=== PATIENT | male | born 1995 | race Caucasian/White ===

== ENCOUNTER → 2017-03-01 | Outpatient (CLI) | payer OTHER ==
[2017-03-01 16:25] LABS: CHLORIDE,CL 106 mmol/L (98-110); SODIUM,NA 141 mmol/L (136-146)
== END ==
LOC: MW.CHFP 15:32
PROVIDERS: ATTEND Physician Assistant
DX: R19.7 Diarrhea, unspecified (principal)
CPT/HCPCS: 36415; 80053; 83630; 85025; 87046; 87899

== ENCOUNTER → 2017-03-02 | Outpatient (CLI) | payer OTHER | LOC: MW.CHFP 11:00 | PROVIDERS: ATTEND Physician Assistant | DX: R19.7 Diarrhea, unspecified (principal) | CPT/HCPCS: 87324 ==

== ENCOUNTER 2017-03-23 17:55 | Emergency (ER) | payer OTHER ==
[2017-03-23] MEDS ORDERED: Ketorolac 60 MG/2 ML SDV IM ONE (18:28)
--- NOTE | 2017-03-23 18:35 | EDM.PDOC ---
ED HPI GENERAL MEDICAL PROBLEM - General Chief Complaint: General Stated Complaint: PT HAS CHEST PAINS Time Seen by Provider: 03/23/17 18:00 Source of Information: Reports: Patient History Limitations: Reports: No limitations - History of Present Illness INITIAL COMMENTS - FREE TEXT/NARRATIVE: Presents reporting pain under the shoulder blade on the left back which radiates under his arm to the left chest. It started earlier today after he a gone hiking. Reports it increases with laughing, coughing or deep breath. He also states that he has a sensation like "something is moving" in his scalp at the crown of his head. He states he had a headache last evening but it went away with a couple of Advil. Otherwise healthy without chronic medical problems. No shortness of breath, fever, nausea, cough or URI symptoms. Left Chest Pain Score (Numeric/FACES): 3 - Related Data Allergies Allergy/AdvReac Type Severity Reaction Status Date / Time acetaminophen [From Vicodin] Allergy Vomiting Verified 03/23/17 18:12 hydrocodone [From Vicodin] Allergy Vomiting Verified 03/23/17 18:12 Home Meds: Home Meds . [No Known Home Meds] 03/23/17 [History] Past Medical History - Past Health History Medical/Surgical History: Denies Medical/Surgical History Social & Family History - Family History Family Medical History: Noncontributory - Tobacco Use Smoking Status *Q: Never Smoker - Caffeine Use Caffeine Use: Reports: None - Recreational Drug Use Recreational Drug Use: No ED ROS GENERAL - Review of Systems Review Of Systems: ROS reveals no pertinent complaints other than HPI. ED EXAM, GENERAL - Physical Exam Exam: See Below Exam Limited By: No limitations General Appearance: alert, no apparent distress Ears: normal external exam, normal TMs Nose: normal inspection Throat/Mouth: Normal inspection Head: atraumatic, normocephalic Neck: normal inspection Respiratory/Chest: no respiratory distress, lungs clear, normal breath sounds, no accessory muscle use, chest non-tender, other (I palpated all over his spine left shoulder blade under his arm left chest and left upper abdomen while he was talking and he never even noticed) Cardiovascular: normal peripheral pulses, regular rate, rhythm, no edema, no murmur GI/Abdominal: Soft, No Distention Back Exam: normal inspection, full range of motion. No: CVA tenderness (L), CVA tenderness (R) Extremities: normal inspection, normal range of motion Neurological: alert, oriented, normal cognition, no motor/sensory deficits Psychiatric: normal affect, normal mood Skin Exam: Warm, Dry, Intact, Normal color, No rash Lymphatic: no adenopathy EKG INTERPRETATION EKG Date: 03/23/17 (1751) Rhythm: NSR Rate (beats/min): 73 [place]: normal P-wave: present QRS: normal ST-T: normal QT: normal Course - Vital Signs Last Recorded V/S: Last Vital Signs Temp 37.1 C 03/23/17 18:05 Pulse 77 03/23/17 18:05 Resp 18 03/23/17 18:05 BP 136/82 03/23/17 18:05 Pulse Ox 99 03/23/17 18:05 - Orders/Labs/Meds Orders: Active Orders 24 hr Category Date Time Status EKG 12 Lead [EKG Documentation Completion] [RC] STAT Care 03/23/17 17:57 Active Ketorolac [Toradol] Med 03/23/17 18:28 Once 60 mg IM ONETIME ONE Departure - Departure Time of Disposition: 18:35 Disposition: Home, Self-Care 01 Condition: good Clinical Impression: Muscle strain - Discharge Information Referrals: PCP,None [Primary Care Provider] - [facility] [Outside] [facility] [Outside] Forms: ED Department Discharge Additional Instructions: 1. Warm or cold packs every 20 minutes every 3-4 hours. 2. Ibuprofen 600mg every 8 hours or aleve 2 tabs every 12 hours as needed for pain. 3. Follow up in primary care - My Orders Last 24 Hours: My Active Orders 03/23/17 17:57 EKG 12 Lead [EKG Documentation Completion] [RC] STAT 03/23/17 18:28 Ketorolac [Toradol] 60 mg IM ONETIME ONE - Assessment/Plan Last 24 Hours: My Active Orders 03/23/17 17:57 EKG 12 Lead [EKG Documentation Completion] [RC] STAT 03/23/17 18:28 Ketorolac [Toradol] 60 mg IM ONETIME ONE
[2017-03-23 19:05] VITALS: BP 114/73
== END 2017-03-23 19:03 | disposition home or self-care (01) ==
LOC: MW.ED 17:55
DX: S29.012A Strain of muscle and tendon of back wall of thorax, initial encounter (principal); Y93.01 Activity, walking, marching and hiking; Z88.5 Allergy status to narcotic agent; Z88.6 Allergy status to analgesic agent
CPT/HCPCS: 93005; 96372; 99285; J1885; 99283

== ENCOUNTER 2017-11-06 21:16 | Emergency (ER) | payer OTHER ==
[2017-11-06] MEDS ORDERED: Lidocaine 1% 20 ML MDV INJECT ONE (21:38)
--- NOTE | 2017-11-06 21:38 | EDM.PDOC ---
ED HPI GENERAL MEDICAL PROBLEM - General Chief Complaint: Laceration Stated Complaint: LACERATION RT THUMB Time Seen by Provider: 11/06/17 21:36 Source of Information: Reports: Patient History Limitations: Reports: No Limitations - History of Present Illness INITIAL COMMENTS - FREE TEXT/NARRATIVE: HISTORY AND PHYSICAL: 22-year-old male presents with a laceration to the lateral right thumb History of Present Illness: []Patient was trying to cut a Ziploc tie cutting towards himself cut his thumb Review of Systems: As per history of present illness and below otherwise all systems reviewed and negative. Past medical history: As per history of present illness and as reviewed below otherwise noncontributory. Surgical history: As per history of present illness and as reviewed below otherwise noncontributory. Social history: No reported history of drug or alcohol abuse. Family history: As per history of present illness and as reviewed below otherwise noncontributory. Physical exam: Gen. he walks into the emergency department she is alert and oriented answering questions appropriately in full sentences HEENT: Atraumatic, normocehpalic, pupils reactive, negative for conjunctival pallor or scleral icterus, mucous membranes moist, throat clear, neck supple, nontender, trachea midline. Lungs: Clear to auscultation, breath sounds equal bilaterally, chest non tender. Heart: S1S2, regular, negative for clicks, rubs, or JVD. Abdomen: Soft, nondistended, nontender. Negative for masses or hepatossplenmegaly. Negative for costovertebral tenderness. Pelvis: Stable nontender. Genitourinary: Deferred. Rectal: Deferred Extremities: Atraumatic, negative for cords or calf pain. Right thumb with a 2 cm laceration Neurovascular unremarkable. Neuro: Awake, alert, oriented. Cranial nerves II through XII unremarkable. Cerebellum unremarkable. Motor and sensory unremarkable throughout. Exam nonfocal. Diagnostics: [] Therapeutics: [Lidocaine] Impression: [Laceration to right thumb with repair] Plan: [Discharged to home sutures to be removed in 7-10 days Any redness heat swelling pustular exudate return for reevaluation] Definitive disposition and diagnosis as appropriate pending reevaluation and review of above. Onset: Today, Sudden Right Hand Pain Score (Numeric/FACES): 5 - Related Data Allergies Allergy/AdvReac Type Severity Reaction Status Date / Time acetaminophen [From Vicodin] Allergy Vomiting Verified 03/23/17 18:12 hydrocodone [From Vicodin] Allergy Vomiting Verified 03/23/17 18:12 Home Meds: Home Meds . [No Known Home Meds] 03/23/17 [History] Past Medical History - Past Health History Medical/Surgical History: Denies Medical/Surgical History Social & Family History - Family History Family Medical History: Noncontributory - Tobacco Use Smoking Status *Q: Never Smoker - Caffeine Use Caffeine Use: Reports: None - Recreational Drug Use Recreational Drug Use: No ED ROS GENERAL - Review of Systems Review Of Systems: ROS reveals no pertinent complaints other than HPI. ED EXAM, SKIN/RASH Exam: See Below (See dictation) ED SKIN PROCEDURES - Laceration/Wound Repair Right Lateral Finger Lac/Wound length In cm: 2.5 Appearance: Subcutaneous, Clean Distal NVT: Neuro & Vascular Intact Anesthetic Type: Local Local Anesthesia - Lidocaine (Xylocaine): 1% Plain Local Anesthetic Volume: 3cc Skin Prep: Chlorhexidine (Hibiciens) Exploration/Debridement/Repair: Wound Explored, In a Bloodless Field, Explored to Base Closed with: Sutures Suture Size: 4-0 # of Sutures: 4 Suture Type: Nylon, Interrupted, Simple Drain Placement: No Sterile Dressing Applied: Nurse Tetanus Status Addressed: No (Last tetanus vaccine 2 years ago) Complications: No Course - Vital Signs Last Recorded V/S: Last Vital Signs Temp 36.3 C 11/06/17 21:39 Pulse 87 11/06/17 21:39 Resp 14 11/06/17 21:39 BP 125/81 11/06/17 21:39 Pulse Ox 98 11/06/17 21:39 - Orders/Labs/Meds Meds: Medications Discontinued Medications Generic Name Dose Route Start Last Admin Trade Name Freq PRN Reason Stop Dose Admin Bacitracin 1 dose 11/06/17 21:39 Bacitracin Oint 1 Gm TOP 11/06/17 21:40 ONETIME ONE Lidocaine HCl 20 ml 11/06/17 21:38 Xylocaine 1% INJECT 11/06/17 21:39 ONETIME ONE Departure - Departure Time of Disposition: 22:04 Disposition: Home, Self-Care 01 Condition: Good Clinical Impression: Laceration of thumb Qualifiers: Encounter type: initial encounter Damage to nail status: without damage Foreign body presence: without foreign body Laterality: right Qualified Code(s) : S61.011A - Laceration without foreign body of right thumb without damage to nail, initial encounter - Discharge Information Instructions: Stitches, Cuca, or Adhesive Wound Closure, [id number] Referrals: PCP,None [Primary Care Provider] - Forms: ED Department Discharge Additional Instructions: The following information is given to patients seen in the emergency department who are being discharged to home. This information is to outline your options for follow-up care. We provide all patients seen in our emergency department with a follow-up referral. The need for follow-up, as well as the timing and circumstances, are variable depending upon the specifics of your emergency department visit. If you don't have a primary care physician on staff, we will provide you with a referral. We always advise you to contact your personal physician following an emergency department visit to inform them of the circumstance of the visit and for follow-up with them and/or the need for any referrals to a consulting specialist. The emergency department will also refer you to a specialist when appropriate. This referral assures that you have the opportunity for followup care with a specialist. All of these measure are taken in an effort to provide you with optimal care, which includes your followup. Under all circumstances we always encourage you to contact your private physician who remains a resource for coordinating your care. When calling for followup care, please make the office aware that this follow-up is from your recent emergency room visit. If for any reason you are refused follow-up, please contact the [facility] emergency department at and asked to speak to the emergency department charge nurse. Follow-up in 7-10 days for suture removal Any redness heat swelling pustular exudate he will need to have be reevaluated
[2017-11-06] MEDS ORDERED: Bacitracin Oint 1 GM U/D Packet TOP ONE (21:39)
[2017-11-06 21:42] VITALS: BP 125/81
== END 2017-11-06 22:20 | disposition home or self-care (01) ==
LOC: MW.ED 21:16
DX: S61.011A Laceration without foreign body of right thumb without damage to nail, initial encounter (principal); W26.8XXA Contact with other sharp object(s), not elsewhere classified, initial encounter
CPT/HCPCS: 12001; 99282

== ENCOUNTER 2017-11-14 11:19 | Emergency (ER) | payer OTHER | END 2017-11-14 11:25 | disposition left against medical advice (07) | LOC: MW.ED 11:19 | DX: Z53.21 Procedure and treatment not carried out due to patient leaving prior to being seen by health care provider (principal) ==

== ENCOUNTER 2020-09-04 18:36 | Emergency (ER) | payer BC, OTHER ==
[2020-09-04] MEDS ORDERED: Acetaminophen 500 MG Tab PO ONE (19:06)
[2020-09-04] MEDS ORDERED: Sodium Chloride 0.9% 1,000 ML IV ONE (19:14)
--- NOTE | 2020-09-04 19:21 | EDM.PDOC ---
ED HPI GENERAL MEDICAL PROBLEM - General Chief Complaint: Respiratory Problem Stated Complaint: HIGH FEVER/WEAKNESS/COVID EXPOSURE Time Seen by Provider: 09/04/20 18:56 - History of Present Illness INITIAL COMMENTS - FREE TEXT/NARRATIVE: error - Related Data Allergies Allergy/AdvReac Type Severity Reaction Status Date / Time acetaminophen [From Vicodin] Allergy Vomiting Verified 09/04/20 18:56 hydrocodone [From Vicodin] Allergy Vomiting Verified 09/04/20 18:56 Home Meds: Home Meds Azithromycin [Zithromax] 1 dose PO DAILY 5 Days #6 tab 09/04/20 [Rx] methylPREDNISolone [Medrol] 1 dose PO DAILY 6 Days #1 dospk 09/04/20 [Rx] Past Medical History - Past Health History Medical/Surgical History: Denies Medical/Surgical History Social & Family History - Family History Family Medical History: Noncontributory - Tobacco Use Tobacco Use Status *Q: Never Tobacco User - Caffeine Use Caffeine Use: Reports: None - Recreational Drug Use Recreational Drug Use: No ED ROS GENERAL - Review of Systems Review Of Systems: See Below (error) ED EXAM, GENERAL - Physical Exam Exam: See Below (erroe) Course - Vital Signs Last Recorded V/S: Last Vital Signs Temp 100.1 F 09/04/20 20:22 Pulse 83 09/04/20 20:22 Resp 16 09/04/20 20:22 BP 112/58 L 09/04/20 20:22 Pulse Ox 97 09/04/20 20:22 - Orders/Labs/Meds Orders: Active Orders 24 hr Category Date Time Status CORONAVIRUS COVID-19 PCR PHL Stat Lab 09/04/20 19:40 Received Labs: Laboratory Tests 09/04/20 09/04/20 09/04/20 Range/Units 19:30 19:30 19:40 WBC 5.25 (4.0-11.0) K/uL RBC 4.80 (4.50-5.90) M/uL Hgb 14.6 (13.0-17.0) g/dL Hct 43.9 (38.0-50.0) % MCV 91.5 (80.0-98.0) fL MCH 30.4 (27.0-32.0) pg MCHC 33.3 (31.0-37.0) g/dL RDW Std Deviation 42.8 (28.0-62.0) fl RDW Coeff of Mike 13 (11.0-15.0) % Plt Count 193 (150-400) K/uL MPV 10.30 (7.40-12.00) fL Neut % (Auto) 74.6 (48.0-80.0) % Lymph % (Auto) 13.0 L (16.0-40.0) % [place] % (Auto) 12.2 (0.0-15.0) % Eos % (Auto) 0.2 (0.0-7.0) % Baso % (Auto) 0.0 (0.0-1.5) % Neut # (Auto) 3.9 (1.4-5.7) K/uL Lymph # (Auto) 0.7 (0.6-2.4) K/uL [place] # (Auto) 0.6 (0.0-0.8) K/uL Eos # (Auto) 0.0 (0.0-0.7) K/uL Baso # (Auto) 0.0 (0.0-0.1) K/uL Nucleated RBC % 0.0 /100WBC Nucleated RBCs # 0 K/uL Sodium 136 (136-148) mmol/L Potassium 3.7 (3.5-5.1) mmol/L Chloride 101 (98-107) mmol/L Carbon Dioxide 25.2 (21.0-32.0) mmol/L BUN 10 (7.0-18.0) mg/dL Creatinine 0.9 (0.8-1.3) mg/dL Est Cr Clr Drug Dosing 138.91 mL/min Estimated GFR (MDRD) > 60.0 ml/min Glucose 98 (74-106) mg/dL Calcium 8.2 L (8.5-10.1) mg/dL Total Bilirubin 0.3 (0.2-1.0) mg/dL AST 31 (15-37) IU/L ALT 46 (14-63) IU/L Alkaline Phosphatase 86 (46-116) U/L Total Protein 7.3 (6.4-8.2) g/dL Albumin 4.1 (3.4-5.0) g/dL Globulin 3.2 (2.6-4.0) g/dL Albumin/Globulin Ratio 1.3 (0.9-1.6) SARS CoV-2 RNA Rapid LOUISA NEGATIVE (NEGATIVE) Meds: Medications Discontinued Medications Generic Name Dose Route Start Last Admin Trade Name Liliane PRN Reason Stop Dose Admin Acetaminophen 1,000 mg 09/04/20 19:06 09/04/20 19:37 Tylenol Extra Strength PO 09/04/20 19:07 1,000 mg ONETIME ONE Administration Azithromycin 500 mg 09/04/20 20:17 09/04/20 20:23 Zithromax PO 09/04/20 20:18 500 mg NOW STA Administration Dexamethasone 6 mg 09/04/20 20:02 09/04/20 20:24 Dexamethasone PO 09/04/20 20:03 6 mg ONETIME ONE Administration Dexamethasone Confirm 09/04/20 20:26 09/05/20 00:15 Dexamethasone Administered 09/04/20 20:27 Not Given Dose 4 mg .ROUTE .STK-MED ONE Sodium Chloride 1,000 mls @ 999 mls/hr 09/04/20 19:14 09/04/20 19:37 Normal Saline IV 09/04/20 20:14 999 mls/hr STAT ONE Administration Departure - Departure Time of Disposition: 00:27 Disposition: Home, Self-Care 01 Clinical Impression: Viral upper respiratory illness - Discharge Information Prescriptions: methylPREDNISolone [Medrol] 1 dose PO DAILY 6 Days #1 dospk Azithromycin [Zithromax] 1 dose PO DAILY 5 Days #6 tab Instructions: Viral Respiratory Infection, [id number] Referrals: PCP,None [Primary Care Provider] - Forms: ED Department Discharge Additional Instructions: The following information is given to patients seen in the emergency department who are being discharged to home. This information is to outline your options for follow-up care. We provide all patients seen in our emergency department with a follow-up referral. The need for follow-up, as well as the timing and circumstances, are variable depending upon the specifics of your emergency department visit. If you don't have a primary care physician on staff, we will provide you with a referral. We always advise you to contact your personal physician following an emergency department visit to inform them of the circumstance of the visit and for follow-up with them and/or the need for any referrals to a consulting specialist. The emergency department will also refer you to a specialist when appropriate. This referral assures that you have the opportunity for follow-up care with a specialist. All of these measure are taken in an effort to provide you with optimal care, which includes your follow-up. Under all circumstances we always encourage you to contact your private physician who remains a resource for coordinating your care. When calling for follow-up care, please make the office aware that this follow-up is from your recent emergency room visit. If for any reason you are refused follow-up, please contact the [facility] Emergency Department at and asked to speak to the emergency department charge nurse. [facility] Primary Care [address], [place] [address] [facility] [address] [place] [id number] Thank you for choosing the [facility] emergency department in [place] for your medical needs today. It was a pleasure caring for you. Today you were seen in the emergency department for respiratory symptoms. 1. Your COVID-19 screening is negative. If you are not in close contact to someone who is positive, you should continue to practice physical distancing and limit your interactions with others as much as possible. You may attend work and attend/perform essential activities if you are not sick. If you continue to feel unwell please stay home. If you are in close contact with someone who tested positive, then you should continue to quarantine until you complete 14 days. 2. COVID-19 testing is not 100% accurate, if you continue to have symptoms you can follow-up at our respiratory clinic to be tested with a send out swab. 3. You can take NyQuil during the evening to help get a restful night sleep. 4. You may alternate Tylenol and ibuprofen as needed for pain and fever management. 5. The [place] COVID 19 Hotline phone number , They are open Wednesday - Wednesday 7am - 7pm. 6. Follow up with your primary care provider for re-evaluation and if your symptoms should worsen, new symptoms develop or you feel like you are not improving you are always welcome to return to the emergency room. Sepsis Event Note (ED) - Evaluation Sepsis Screening Result: No Definite Risk - Focused Exam Vital Signs: Vital Signs Temp Temp Pulse Resp BP Pulse Ox 09/04/20 20:22 100.1 F 83 16 112/58 L 97 09/04/20 20:07 100.1 F 09/04/20 19:54 84 16 91/42 L 96 09/04/20 19:37 102.6 F H 09/04/20 18:56 102.6 F H 99 17 113/65 94 L
--- NOTE | 2020-09-04 19:23 | PCM.SN.2 ---
- Free Text/Narrative Note: 12 lead EKG interpretation Obtained: September 04, 2020 at 1910 hrs. Rhythm: Sinus Rate: 89 [place]: Normal Intervals: Normal ST/T Segments: No acute ischemic changes Interpretation: Sinus Rhythm
--- NOTE | 2020-09-04 19:38 | CR ---
INDICATION: Cough TECHNIQUE: Chest radiograph 1 view COMPARISON: 01/17/2016 FINDINGS: Mediastinum: The mediastinum is normal in appearance. The heart silhouette is normal in size and morphology. Lung: Both lungs are unremarkable in appearance. No sign of pleural effusion seen. No pneumothorax is identified. Bone and Soft tissue: Unremarkable for age. IMPRESSION: 1. No acute cardiopulmonary disease is seen. Dictated by: Dao Parker MD @ 09/04/2020 19:36:26 (Electronically Signed)
--- NOTE | 2020-09-04 19:42 | EDM.PDOC ---
ED HPI GENERAL MEDICAL PROBLEM - General Chief Complaint: Respiratory Problem Stated Complaint: HIGH FEVER/WEAKNESS/COVID EXPOSURE Time Seen by Provider: 09/04/20 18:56 Source of Information: Reports: Patient History Limitations: Reports: No Limitations - History of Present Illness INITIAL COMMENTS - FREE TEXT/NARRATIVE: HISTORY AND PHYSICAL: History of present illness: Patient is a 28-year-old male who presents to the emergency room with complaints of dizziness, fatigue and cough for the past 1 week. He states earlier this month he had similar symptoms and was tested for COVID-19 on 08/21/2020, this was negative. Shortly after he started to feel better. His had COVID-19 symptoms approximately 2 weeks ago and she tested positive. He started to develop symptoms approximately a week ago (dizziness, fatigue, cough, decreased appetite) and is not feeling better. Today he developed diarrhea. Has had a temp of 100-102 F at home. He has been alternating Tylenol and ibuprofen, last had ibuprofen prior to arrival. Patient denies any headache, change in vision, syncope or near syncope. Denies any chest pain, back pain, abdominal pain, nausea, vomiting, constipation or dysuria. Has not noted any blood in urine or stool. Patient has been eating and drinking appropriately. Review of systems: As per history of present illness and below otherwise all systems reviewed and negative. Past medical history: As per history of present illness and as reviewed below otherwise noncontributory. Surgical history: As per history of present illness and as reviewed below otherwise noncontributory. Social history: See social history for further information Family history: As per history of present illness and as reviewed below otherwise noncontributory. Physical exam: General: Well developed and well nourished. Alert and orientated x 3. Nontoxic in appearance and in no acute distress. Vital signs are stable and have been reviewed by me. Nursing notes were reviewed. HEENT: Atraumatic, normocephalic, pupils equal and reactive bilaterally, negative for conjunctival pallor or scleral icterus, mucous membranes moist, TMs normal bilaterally, throat clear, neck supple, nontender, trachea midline. No drooling or trismus noted. No meningeal signs. No hot potato voice noted. Lungs: Clear to auscultation, breath sounds equal bilaterally, chest nontender. Normal work of breathing, no accessory muscles used. Heart: S1S2, regular rate and rhythm without overt murmur Abdomen: Soft, nondistended, nontender. Negative for masses or hepatosplenomegaly. Negative for costovertebral tenderness. Pelvis: Stable nontender. Skin: Intact, warm, dry. No lesions or rashes noted. Hematologic: No petechiae or purpra. Mucosa appropriate color and normal nail bed color and refill. Extremities: Atraumatic, moves all extremities per self without difficulty or deficits, negative for cords or calf pain. Neurovascular unremarkable. Neuro: Awake, alert, oriented. Cranial nerves II through XII unremarkable. Cerebellum unremarkable. Motor and sensory unremarkable throughout. Exam nonfocal. Psychiatric: Mood and affect are appropriate. Normal thought process. Answering questions appropriately. Notes: Patient's lab work and chest x-ray are unremarkable. Due to his close contact with a Covid positive and his symptoms a believe his state testing will be positive and we discussed him continuing quarantine, he states he does have a few more days for isolation at home. Since he has had this intermittent cough for almost a month I will give him a Z-Randy and steroids. Currently his vital signs are stable and he does feel improved after the fluids. I have spoken with the patient/caregiver and discussed today's findings, in addition to providing specific details for plan of care. Reassessment at the time of disposition demonstrates that the patient is in no acute distress. The patient has remained stable throughout the entire ED visit and is without objective evidence for acute process requiring urgent intervention or hospitalization. The patient is stable for discharge, counseling was provided and we discussed in great detail signs and symptoms that would prompt them to return to the Emergency Department. Medication, follow up and supportive care measures were reviewed and discussed. Voices understanding and is agreeable to plan of care. Denies any further questions or concerns at this time. Diagnostics: CBC, CMP, CXR, COVID Therapeutics: Zithromax, Decadron Prescription: Zpak, Medrol Dosepak Impression: Viral URI Plan: 1. Your COVID-19 screening is negative. If you are not in close contact to someone who is positive, you should continue to practice physical distancing and limit your interactions with others as much as possible. You may attend work and attend/perform essential activities if you are not sick. If you continue to feel unwell please stay home. If you are in close contact with someone who tested positive, then you should continue to quarantine until you complete 14 days. 2. COVID-19 testing is not 100% accurate, if you continue to have symptoms you can follow-up at our respiratory clinic to be tested with a send out swab. 3. You can take NyQuil during the evening to help get a restful night sleep. 4. You may alternate Tylenol and ibuprofen as needed for pain and fever management. 5. The [place] COVID 19 Hotline phone number , They are open Wednesday - Wednesday 7am - 7pm. 6. Follow up with your primary care provider for re-evaluation and if your symptoms should worsen, new symptoms develop or you feel like you are not improving you are always welcome to return to the emergency room. Definitive disposition and diagnosis as appropriate pending reevaluation and review of above. - Related Data Allergies Allergy/AdvReac Type Severity Reaction Status Date / Time acetaminophen [From Vicodin] Allergy Vomiting Verified 09/04/20 18:56 hydrocodone [From Vicodin] Allergy Vomiting Verified 09/04/20 18:56 Home Meds: Home Meds Azithromycin [Zithromax] 1 dose PO DAILY 5 Days #6 tab 09/04/20 [Rx] methylPREDNISolone [Medrol] 1 dose PO DAILY 6 Days #1 dospk 09/04/20 [Rx] Past Medical History - Past Health History Medical/Surgical History: Denies Medical/Surgical History Social & Family History - Family History Family Medical History: Noncontributory - Tobacco Use Tobacco Use Status *Q: Never Tobacco User - Caffeine Use Caffeine Use: Reports: None - Recreational Drug Use Recreational Drug Use: No ED ROS GENERAL - Review of Systems Review Of Systems: Comprehensive ROS is negative, except as noted in HPI. ED EXAM, GENERAL - Physical Exam Exam: See Below (See dictation) Course - Vital Signs Last Recorded V/S: Last Vital Signs Temp 102.6 F H 09/04/20 19:37 Pulse 84 09/04/20 19:54 Resp 16 09/04/20 19:54 BP 91/42 L 09/04/20 19:54 Pulse Ox 96 09/04/20 19:54 - Orders/Labs/Meds Orders: Active Orders 24 hr Category Date Time Status CORONAVIRUS COVID-19 PCR PHL Stat Lab 09/04/20 19:40 Received Labs: Laboratory Tests 09/04/20 09/04/20 09/04/20 Range/Units 19:30 19:30 19:40 WBC 5.25 (4.0-11.0) K/uL RBC 4.80 (4.50-5.90) M/uL Hgb 14.6 (13.0-17.0) g/dL Hct 43.9 (38.0-50.0) % MCV 91.5 (80.0-98.0) fL MCH 30.4 (27.0-32.0) pg MCHC 33.3 (31.0-37.0) g/dL RDW Std Deviation 42.8 (28.0-62.0) fl RDW Coeff of Mike 13 (11.0-15.0) % Plt Count 193 (150-400) K/uL MPV 10.30 (7.40-12.00) fL Neut % (Auto) 74.6 (48.0-80.0) % Lymph % (Auto) 13.0 L (16.0-40.0) % Clare % (Auto) 12.2 (0.0-15.0) % Eos % (Auto) 0.2 (0.0-7.0) % Baso % (Auto) 0.0 (0.0-1.5) % Neut # (Auto) 3.9 (1.4-5.7) K/uL Lymph # (Auto) 0.7 (0.6-2.4) K/uL Clare # (Auto) 0.6 (0.0-0.8) K/uL Eos # (Auto) 0.0 (0.0-0.7) K/uL Baso # (Auto) 0.0 (0.0-0.1) K/uL Nucleated RBC % 0.0 /100WBC Nucleated RBCs # 0 K/uL Sodium 136 (136-148) mmol/L Potassium 3.7 (3.5-5.1) mmol/L Chloride 101 (98-107) mmol/L Carbon Dioxide 25.2 (21.0-32.0) mmol/L BUN 10 (7.0-18.0) mg/dL Creatinine 0.9 (0.8-1.3) mg/dL Est Cr Clr Drug Dosing 138.91 mL/min Estimated GFR (MDRD) > 60.0 ml/min Glucose 98 (74-106) mg/dL Calcium 8.2 L (8.5-10.1) mg/dL Total Bilirubin 0.3 (0.2-1.0) mg/dL AST 31 (15-37) IU/L ALT 46 (14-63) IU/L Alkaline Phosphatase 86 (46-116) U/L Total Protein 7.3 (6.4-8.2) g/dL Albumin 4.1 (3.4-5.0) g/dL Globulin 3.2 (2.6-4.0) g/dL Albumin/Globulin Ratio 1.3 (0.9-1.6) SARS CoV-2 RNA Rapid LOUISA NEGATIVE (NEGATIVE) Meds: Medications Discontinued Medications Generic Name Dose Route Start Last Admin Trade Name Freq PRN Reason Stop Dose Admin Acetaminophen 1,000 mg 09/04/20 19:06 09/04/20 19:37 Tylenol Extra Strength PO 09/04/20 19:07 1,000 mg ONETIME ONE Administration Azithromycin 500 mg 09/04/20 20:17 Zithromax PO 09/04/20 20:18 NOW STA Dexamethasone 6 mg 09/04/20 20:02 Dexamethasone PO 09/04/20 20:03 ONETIME ONE Sodium Chloride 1,000 mls @ 999 mls/hr 09/04/20 19:14 09/04/20 19:37 Normal Saline IV 09/04/20 20:14 999 mls/hr STAT ONE Administration Departure - Departure Time of Disposition: 20:23 Disposition: Home, Self-Care 01 Clinical Impression: Viral upper respiratory illness - Discharge Information Prescriptions: methylPREDNISolone [Medrol] 1 dose PO DAILY 6 Days #1 dospk Azithromycin [Zithromax] 1 dose PO DAILY 5 Days #6 tab Instructions: Viral Respiratory Infection, [id number] Referrals: PCP,None [Primary Care Provider] - Forms: ED Department Discharge Additional Instructions: The following information is given to patients seen in the emergency department who are being discharged to home. This information is to outline your options for follow-up care. We provide all patients seen in our emergency department with a follow-up referral. The need for follow-up, as well as the timing and circumstances, are variable depending upon the specifics of your emergency department visit. If you don't have a primary care physician on staff, we will provide you with a referral. We always advise you to contact your personal physician following an emergency department visit to inform them of the circumstance of the visit and for follow-up with them and/or the need for any referrals to a consulting specialist. The emergency department will also refer you to a specialist when appropriate. This referral assures that you have the opportunity for follow-up care with a specialist. All of these measure are taken in an effort to provide you with optimal care, which includes your follow-up. Under all circumstances we always encourage you to contact your private physician who remains a resource for coordinating your care. When calling for follow-up care, please make the office aware that this follow-up is from your recent emergency room visit. If for any reason you are refused follow-up, please contact the [facility] Emergency Department at and asked to speak to the emergency department charge nurse. [facility] [address] [place] [id number] [facility] [address] [place] [id number] Thank you for choosing the [facility] emergency department in [place] for your medical needs today. It was a pleasure caring for you. Today you were seen in the emergency department for respiratory symptoms. 1. Your COVID-19 screening is negative. If you are not in close contact to someone who is positive, you should continue to practice physical distancing and limit your interactions with others as much as possible. You may attend work and attend/perform essential activities if you are not sick. If you continue to feel unwell please stay home. If you are in close contact with someone who tested positive, then you should continue to quarantine until you complete 14 days. 2. COVID-19 testing is not 100% accurate, if you continue to have symptoms you can follow-up at our respiratory clinic to be tested with a send out swab. 3. You can take NyQuil during the evening to help get a restful night sleep. 4. You may alternate Tylenol and ibuprofen as needed for pain and fever management. 5. The [place] COVID 19 Hotline phone number , They are open Wednesday - Wednesday 7am - 7pm. 6. Follow up with your primary care provider for re-evaluation and if your symptoms should worsen, new symptoms develop or you feel like you are not improving you are always welcome to return to the emergency room. Sepsis Event Note (ED) - Evaluation Sepsis Screening Result: No Definite Risk - Focused Exam Vital Signs: Vital Signs Temp Temp Pulse Resp BP Pulse Ox 09/04/20 19:54 84 16 91/42 L 96 09/04/20 19:37 102.6 F H 09/04/20 18:56 102.6 F H 99 17 113/65 94 L - My Orders Last 24 Hours: My Active Orders 09/04/20 19:40 CORONAVIRUS COVID-19 PCR PHL Stat - Assessment/Plan Last 24 Hours: My Active Orders 09/04/20 19:40 CORONAVIRUS COVID-19 PCR PHL Stat
[2020-09-04] MEDS ORDERED: Dexamethasone 4 MG Tab PO ONE (20:02)
[2020-09-04 20:12] LABS: BLOOD UREA NITROGEN,BUN 10 mg/dL (7.0-18.0); CARBON DIOXIDE,CO2 25.2 mmol/L (21.0-32.0); CHLORIDE,CL 101 mmol/L (98-107); GLUCOSE RANDOM 98 mg/dL (74-106); POTASSIUM,K 3.7 mmol/L (3.5-5.1); SODIUM,NA 136 mmol/L (136-148)
[2020-09-04] MEDS ORDERED: Azithromycin 250 MG Tab PO STA (20:17)
[2020-09-04 20:23] VITALS: BP 112/58; PULSE 83
[2020-09-04] MEDS ORDERED: Dexamethasone 4 MG Tab ONE (20:26)
== END 2020-09-04 20:30 | disposition home or self-care (01) ==
LOC: MW.ED 18:36
DX: J06.9 Acute upper respiratory infection, unspecified (principal); Z20.828 Contact with and (suspected) exposure to other viral communicable diseases; Z88.5 Allergy status to narcotic agent
CPT/HCPCS: 36415; 71045; 80053; 85025; 87635; 93005; 99284; A9270; J7030; J8540; 93010; 99283; U0002

== ENCOUNTER 2020-09-07 10:26 | Emergency (ER) | payer BC, OTHER ==
[2020-09-07] MEDS ORDERED: Sodium Chloride 0.9% 1,000 ML IV ONE (11:15)
[2020-09-07] MEDS ORDERED: Ondansetron 4 MG/2 ML SDV IVPUSH ONE (11:15)
--- NOTE | 2020-09-07 11:30 | EDM.PDOC ---
ED HPI GENERAL MEDICAL PROBLEM - General Chief Complaint: Gastrointestinal Problem Stated Complaint: FEVER/VOMITING Time Seen by Provider: 09/07/20 10:51 Source of Information: Reports: Patient History Limitations: Reports: No Limitations - History of Present Illness INITIAL COMMENTS - FREE TEXT/NARRATIVE: Presents reporting ongoing and stuttering complaints since August 21, 2020: Headache, fever, diarrhea, cough, chills and hot flushes, poor appetite, dizziness, fatigue, exhaustion. He did test negative for COVID-19 on August 21 and again on September 04. He is awaiting confirmation on the state test secondary to his negative test on September 04. His tested positive on the . He did quarantine for 10 days. On September 04 the patient was seen here in the ER, his lab work and chest x-ray were unremarkable, Covid 19 test was negative. He was given IV fluids, a Z-Randy and steroids for his intermittent cough. His vital signs were stable he was discharged to home with supportive care measures. Now today along with his other symptoms, he reports fever, abdominal tenderness and pain, and vomiting with dry heaves. No dysuria, chest pain, shortness of breath, back pain, personal or family history of kidney stones. He does state that he has had some stuttering right lower quadrant pain which recurs about every 3 months but he has not sought medical care. He is otherwise healthy without chronic medical problems, takes no medications and does not have a primary medical provider. general Pain Score (Numeric/FACES): 4 - Related Data Allergies Allergy/AdvReac Type Severity Reaction Status Date / Time acetaminophen [From Vicodin] Allergy Vomiting Verified 09/04/20 18:56 hydrocodone [From Vicodin] Allergy Vomiting Verified 09/04/20 18:56 Home Meds: Home Meds Azithromycin [Zithromax] 1 dose PO DAILY 5 Days #6 tab 09/04/20 [Rx] methylPREDNISolone [Medrol] 1 dose PO DAILY 6 Days #1 dospk 09/04/20 [Rx] Ondansetron [Zofran ODT] 1 tab PO Q6H PRN #4 tab.dis 09/07/20 [Rx] dexAMETHasone [Decadron] 6 mg PO DAILY 5 Days #5 tablet 09/07/20 [Rx] Past Medical History - Past Health History Medical/Surgical History: Denies Medical/Surgical History Social & Family History - Family History Family Medical History: Noncontributory - Tobacco Use Tobacco Use Status *Q: Never Tobacco User - Caffeine Use Caffeine Use: Reports: None - Recreational Drug Use Recreational Drug Use: No ED ROS GENERAL - Review of Systems Review Of Systems: Comprehensive ROS is negative, except as noted in HPI. ED EXAM, GI/ABD - Physical Exam Exam: See Below Exam Limited By: No Limitations General Appearance: Alert, No Apparent Distress Ears: Normal External Exam Nose: Normal Inspection Throat/Mouth: Normal Inspection Head: Atraumatic, Normocephalic Neck: Normal Inspection Respiratory/Chest: No Respiratory Distress, Lungs Clear, Normal Breath Sounds Cardiovascular: Normal Peripheral Pulses, Regular Rate, Rhythm GI/Abdominal Exam: Normal Bowel Sounds, Soft, No Distention, Tender (Generalized, exquisite right lower quadrant with rebound) Back Exam: Normal Inspection, Full Range of Motion. No: CVA Tenderness (L), CVA Tenderness (R) Extremities: Normal Inspection, Normal Range of Motion Neurological: Alert, Oriented Psychiatric: Normal Affect, Normal Mood Skin Exam: Warm (hot), Dry, Intact, Normal Color, No Rash Lymphatic: No Adenopathy Course - Vital Signs Last Recorded V/S: Last Vital Signs Temp 40.1 C H 09/07/20 13:30 Pulse 93 09/07/20 15:22 Resp 20 09/07/20 15:22 BP 118/63 09/07/20 15:22 Pulse Ox 92 L 09/07/20 15:22 - Orders/Labs/Meds Orders: Active Orders 24 hr Category Date Time Status CULTURE BLOOD [BC] Stat Lab 09/07/20 11:40 Received CULTURE BLOOD [BC] Stat Lab 09/07/20 11:58 Received Blood Culture x2 Reflex Set [OM.PC] Stat Oth 09/07/20 11:16 Ordered Labs: Laboratory Tests 09/07/20 09/07/20 09/07/20 Range/Units 11:40 11:40 11:40 WBC 6.80 (4.0-11.0) K/uL RBC 4.94 (4.50-5.90) M/uL Hgb 15.0 (13.0-17.0) g/dL Hct 45.2 (38.0-50.0) % MCV 91.5 (80.0-98.0) fL MCH 30.4 (27.0-32.0) pg MCHC 33.2 (31.0-37.0) g/dL RDW Std Deviation 44.0 (28.0-62.0) fl RDW Coeff of Mike 13 (11.0-15.0) % Plt Count 183 (150-400) K/uL MPV 10.60 (7.40-12.00) fL Neut % (Auto) 89.3 H (48.0-80.0) % Lymph % (Auto) 7.1 L (16.0-40.0) % Heard % (Auto) 3.5 (0.0-15.0) % Eos % (Auto) 0.1 (0.0-7.0) % Baso % (Auto) 0.0 (0.0-1.5) % Neut # (Auto) 6.1 H (1.4-5.7) K/uL Lymph # (Auto) 0.5 L (0.6-2.4) K/uL Heard # (Auto) 0.2 (0.0-0.8) K/uL Eos # (Auto) 0.0 (0.0-0.7) K/uL Baso # (Auto) 0.0 (0.0-0.1) K/uL Nucleated RBC % 0.0 /100WBC Nucleated RBCs # 0 K/uL Lactate 1.1 (0.20-2.00) mmol/L Sodium 137 (136-148) mmol/L Potassium 3.7 (3.5-5.1) mmol/L Chloride 101 (98-107) mmol/L Carbon Dioxide 25.8 (21.0-32.0) mmol/L BUN 10 (7.0-18.0) mg/dL Creatinine 0.9 (0.8-1.3) mg/dL Est Cr Clr Drug Dosing 138.91 mL/min Estimated GFR (MDRD) > 60.0 ml/min Glucose 92 (74-106) mg/dL Calcium 8.3 L (8.5-10.1) mg/dL Total Bilirubin 0.3 (0.2-1.0) mg/dL AST 49 H (15-37) IU/L ALT 57 (14-63) IU/L Alkaline Phosphatase 73 (46-116) U/L Total Protein 7.4 (6.4-8.2) g/dL Albumin 3.9 (3.4-5.0) g/dL Globulin 3.5 (2.6-4.0) g/dL Albumin/Globulin Ratio 1.1 (0.9-1.6) Urine Color Urine Appearance Urine pH (5.0-8.0) Ur Specific Mumford (1.001-1.035) Urine Protein (NEGATIVE) mg/dL Urine Glucose (UA) (NEGATIVE) mg/dL Urine Ketones (NEGATIVE) mg/dL Urine Occult Blood (NEGATIVE) Urine Nitrite (NEGATIVE) Urine Bilirubin (NEGATIVE) Urine Urobilinogen (<2.0) EU/dL Ur Leukocyte Esterase (NEGATIVE) Urine RBC (0-2/HPF) Urine WBC (0-5/HPF) Ur Epithelial Cells (NONE-FEW) Urine Bacteria (NEGATIVE) SARS-CoV-2 RNA (LOUISA) (NEGATIVE) 09/07/20 09/07/20 Range/Units 12:29 14:05 WBC (4.0-11.0) K/uL RBC (4.50-5.90) M/uL Hgb (13.0-17.0) g/dL Hct (38.0-50.0) % MCV (80.0-98.0) fL MCH (27.0-32.0) pg MCHC (31.0-37.0) g/dL RDW Std Deviation (28.0-62.0) fl RDW Coeff of Mike (11.0-15.0) % Plt Count (150-400) K/uL MPV (7.40-12.00) fL Neut % (Auto) (48.0-80.0) % Lymph % (Auto) (16.0-40.0) % Heard % (Auto) (0.0-15.0) % Eos % (Auto) (0.0-7.0) % Baso % (Auto) (0.0-1.5) % Neut # (Auto) (1.4-5.7) K/uL Lymph # (Auto) (0.6-2.4) K/uL Heard # (Auto) (0.0-0.8) K/uL Eos # (Auto) (0.0-0.7) K/uL Baso # (Auto) (0.0-0.1) K/uL Nucleated RBC % /100WBC Nucleated RBCs # K/uL Lactate (0.20-2.00) mmol/L Sodium (136-148) mmol/L Potassium (3.5-5.1) mmol/L Chloride (98-107) mmol/L Carbon Dioxide (21.0-32.0) mmol/L BUN (7.0-18.0) mg/dL Creatinine (0.8-1.3) mg/dL Est Cr Clr Drug Dosing mL/min Estimated GFR (MDRD) ml/min Glucose (74-106) mg/dL Calcium (8.5-10.1) mg/dL Total Bilirubin (0.2-1.0) mg/dL AST (15-37) IU/L ALT (14-63) IU/L Alkaline Phosphatase (46-116) U/L Total Protein (6.4-8.2) g/dL Albumin (3.4-5.0) g/dL Globulin (2.6-4.0) g/dL Albumin/Globulin Ratio (0.9-1.6) Urine Color YELLOW Urine Appearance HAZY Urine pH 7.0 (5.0-8.0) Ur Specific Mumford 1.020 (1.001-1.035) Urine Protein NEGATIVE (NEGATIVE) mg/dL Urine Glucose (UA) NEGATIVE (NEGATIVE) mg/dL Urine Ketones TRACE H (NEGATIVE) mg/dL Urine Occult Blood TRACE-INTACT H (NEGATIVE) Urine Nitrite NEGATIVE (NEGATIVE) Urine Bilirubin NEGATIVE (NEGATIVE) Urine Urobilinogen 0.2 (<2.0) EU/dL Ur Leukocyte Esterase NEGATIVE (NEGATIVE) Urine RBC 0-3 (0-2/HPF) Urine WBC 1-3 (0-5/HPF) Ur Epithelial Cells OCCASIONAL (NONE-FEW) Urine Bacteria FEW (NEGATIVE) SARS-CoV-2 RNA (LOUISA) POSITIVE H (NEGATIVE) Meds: Medications Discontinued Medications Generic Name Dose Route Start Last Admin Trade Name Freq PRN Reason Stop Dose Admin Sodium Chloride 1,000 mls @ 999 mls/hr 09/07/20 11:15 09/07/20 11:32 Normal Saline IV 09/07/20 12:15 999 mls/hr .Bolus ONE Administration Acetaminophen 1,000 mg/ Premix 100 mls @ 400 mls/hr 09/07/20 13:00 09/07/20 13:28 IV 09/07/20 13:14 400 mls/hr NOW ONE Administration Ondansetron HCl 4 mg 09/07/20 11:15 09/07/20 11:32 Zofran IVPUSH 09/07/20 11:16 4 mg ONETIME ONE Administration - Re-Assessments/Exams Free Text/Narrative Re-Assessment/Exam: 09/07/20 15:50 Patient states he feels much better after 1 g of Tylenol IV, IV fluids and Zofran. He would like to go home. His heart rate is now in the 90s, his temperature has come down, oxygen saturation in the upper 90s. Departure - Departure Time of Disposition: 15:50 Disposition: Home, Self-Care 01 Condition: Good Clinical Impression: COVID-19 Pneumonia Qualifiers: Laterality: bilateral - Discharge Information Prescriptions: dexAMETHasone [Decadron] 6 mg PO DAILY 5 Days #5 tablet Referrals: PCP,None [Primary Care Provider] - [facility] [Outside] [facility] [Outside] Forms: ED Department Discharge Additional Instructions: The following information is given to patients seen in the emergency department who are being discharged to home. This information is to outline your options for follow-up care. We provide all patients seen in our emergency department with a follow-up referral. The need for follow-up, as well as the timing and circumstances, are variable depending upon the specifics of your emergency department visit. If you don't have a primary care physician on staff, we will provide you with a referral. We always advise you to contact your personal physician following an emergency department visit to inform them of the circumstance of the visit and for follow-up with them and/or the need for any referrals to a consulting specialist. The emergency department will also refer you to a specialist when appropriate. This referral assures that you have the opportunity for follow-up care with a specialist. All of these measure are taken in an effort to provide you with optimal care, which includes your follow-up. Under all circumstances we always encourage you to contact your private physician who remains a resource for coordinating your care. When calling for follow-up care, please make the office aware that this follow-up is from your recent emergency room visit. If for any reason you are refused follow-up, please contact the [facility] Emergency Department at and asked to speak to the emergency department charge nurse. 1. Drink plenty of fluids and rest. 2. Decadron 6 mg p.o. once daily for the next 5 days 3. Zofran 4 mg under the tongue every 6 hours as needed for nausea 4. Tylenol two 500 mg tablets twice daily or 650 mg tablets 3 times a day as needed for body aches and fever 5. Signs to return to the ER include vomiting and not keeping down oral fluids, shortness of breath 6. Continue quarantine as directed Sepsis Event Note (ED) - Evaluation Sepsis Screening Result: Possible Sepsis Risk - Focused Exam Vital Signs: Vital Signs Temp Pulse Resp BP Pulse Ox 09/07/20 15:22 93 20 118/63 92 L 09/07/20 14:37 107 H 17 112/52 L 92 L 09/07/20 13:37 98 18 119/69 92 L 09/07/20 13:30 40.1 C H 09/07/20 13:22 101 H 20 112/70 94 L 09/07/20 13:07 106 H 20 113/68 95 09/07/20 12:58 39.9 C H 110 H 18 104/62 94 L 09/07/20 12:54 110 H 83/63 L 93 L 09/07/20 10:52 39.4 C H 130 H 19 102/52 L 96 - My Orders Last 24 Hours: My Active Orders 09/07/20 11:16 Blood Culture x2 Reflex Set [OM.PC] Stat 09/07/20 11:40 CULTURE BLOOD [BC] Stat 09/07/20 11:58 CULTURE BLOOD [BC] Stat - Assessment/Plan Last 24 Hours: My Active Orders 09/07/20 11:16 Blood Culture x2 Reflex Set [OM.PC] Stat 09/07/20 11:40 CULTURE BLOOD [BC] Stat 09/07/20 11:58 CULTURE BLOOD [BC] Stat
[2020-09-07 12:07] LABS: BLOOD UREA NITROGEN,BUN 10 mg/dL (7.0-18.0); CARBON DIOXIDE,CO2 25.8 mmol/L (21.0-32.0); CHLORIDE,CL 101 mmol/L (98-107); GLUCOSE RANDOM 92 mg/dL (74-106); POTASSIUM,K 3.7 mmol/L (3.5-5.1); SODIUM,NA 137 mmol/L (136-148)
[2020-09-07] MEDS ORDERED: Acetaminophen 1,000 MG in Premix Bag 1 BAG IV ONE (13:00)
--- NOTE | 2020-09-07 13:38 | CR ---
INDICATION: Fever. Tachycardia. Cough. TECHNIQUE: PA and lateral chest x-ray. COMPARISON: Chest x-ray 09/04/2020. FINDINGS: New patchy moderate infiltrates in the right mid and lower lung. Less prominent new patchy infiltrate in the left lower lobe. These infiltrates appear to be hazy and alveolar in nature. Patchy acute bilateral pneumonia is the primary consideration. Coronavirus pneumonia cannot be distinguished from other pneumonia. Lungs otherwise clear. Heart size normal. Tiny opaque density in the upper abdomen. Chest otherwise negative. Dictated by Quan Adams MD @ Sep 07 2020 1:31PM Signed by Dr. Quan Adams @ Sep 07 2020 1:37PM
--- NOTE | 2020-09-07 13:44 | CT ---
INDICATION: Right lower quadrant pain and tenderness. Fever. TECHNIQUE: CT of the abdomen and pelvis performed without oral or IV contrast. FINDINGS: Moderate ground-glass, alveolar, and nodular infiltrate in the right greater than left lower lobes have a nodular component bilaterally. Findings consistent with an acute bilateral pneumonia. Coronavirus pneumonia cannot be distinguished from other pneumonia including aspiration. Clinical and laboratory correlation recommended. Contracted gallbladder. Spleen upper limits of normal. Portions of the transverse and left colon are not well-distended. The appendix is normal. Fat density change within the wall of the ileal loops in midline and right abdomen and pelvis may be related to the sequela of previous or chronic inflammation. Remainder negative. IMPRESSION: 1. No acute disease in abdomen or pelvis including normal appendix without evidence appendicitis. 2. Fat density change in the wall of the loops of ileum in the right abdomen and pelvis could be related to the sequela of previous or chronic inflammation. 3. Moderate ground-glass, alveolar, and nodular infiltrates in the right lower lobe greater than the left lower lobe consistent with an acute bilateral pneumonia as detailed above. Please note that all CT scans at this facility use dose modulation, iterative reconstruction, and/or weight-based dosing when appropriate to reduce radiation dose to as low as reasonably achievable. Dictated by Quan Adams MD @ Sep 07 2020 1:42PM Signed by Dr. Quan Adams @ Sep 07 2020 1:44PM
[2020-09-07 16:13] VITALS: BP 117/59; PULSE 94
== END 2020-09-07 16:07 | disposition home or self-care (01) ==
LOC: MW.ED 10:26
DX: U07.1 COVID-19 (principal); J12.89 Other viral pneumonia; Z88.5 Allergy status to narcotic agent
CPT/HCPCS: 36415; 71046; 74176; 80053; 81001; 83605; 85025; 87040; 87635; 96374; 96375; 99284; J0131; J2405; J7030; 99283; U0002

== ENCOUNTER 2024-08-11 05:31 | Emergency (ER) | payer BC ==
[2024-08-11 05:59] LABS: BASOPHILS ABSOLUTE AUTO 0.01 K/uL (0.00-0.20); BASOPHILS PERCENT AUTO 0.1 % (0.0-1.0); EOSINOPHILS ABSOLUTE AUTO 0.16 K/uL (0.00-0.45); EOSINOPHILS PERCENT AUTO 1.4 % (0.0-6.0); HEMATOCRIT 44.7 % (42.0-52.0); HEMOGLOBIN 15.4 g/dL (14.0-18.0); IMMATURE GRAN ABSOLUTE AUTO 0.03 K/uL (0.00-0.05); IMMATURE GRAN PERCENT AUTO 0.3 % (0.0-0.4); LYMPHOCYTES ABSOLUTE AUTO 1.84 K/uL (1.00-4.80); LYMPHOCYTES PERCENT AUTO 15.8 % (24.0-44.0); MEAN CORPUSCULAR HEMOGLOBIN 31.4 pg (28.0-32.0); MEAN CORPUSCULAR HGB CONC 34.5 g/dL (32.0-36.0); MEAN PLATELET VOLUME 9.5 fL (9.4-12.4); MONOCYTES ABSOLUTE AUTO 0.94 K/uL (0.00-0.80); NEUTROPHILS PERCENT AUTO 74.4 % (41.0-71.0); PLATELET COUNT,PLT 283 K/uL (150-400); RED BLOOD CELL COUNT 4.91 M/uL (4.52-5.90); WHITE BLOOD CELL COUNT,WBC 11.68 K/uL (3.9-11.3)
[2024-08-11 06:17] LABS: APPEARANCE,URINE SLT CLOUDY; BILIRUBIN,URINE NEGATIVE (NEGATIVE); COLOR,URINE YELLOW; GLUCOSE,URINE NEGATIVE (NEGATIVE); KETONES,URINE NEGATIVE (NEGATIVE); LEUKOCYTE ESTERASE,URINE MODERATE (NEGATIVE); NITRITE,URINE POSITIVE (NEGATIVE); OCCULT BLOOD,URINE LARGE (NEGATIVE); PROTEIN,URINE NEGATIVE (NEGATIVE); UROBILINOGEN,URINE 0.2 EU/dL (<2.0)
[2024-08-11 06:26] LABS: BACTERIA,URINE FEW (NEGATIVE); EPITHELIAL CELLS,URINE RARE (NONE-FEW); RBC,URINE 0-2 (0-2/HPF); WBC,URINE 30-40 (0-5/HPF)
[2024-08-11 06:26] LABS: A/G RATIO 1.4 (0.9-1.6); ALBUMIN 4.2 g/dL (3.4-5.0); BILIRUBIN TOTAL 0.4 mg/dL (0.2-1.0); CALCIUM 8.9 mg/dL (8.5-10.1); CARBON DIOXIDE,CO2 29.7 mmol/L (21.0-32.0); CREATININE 0.8 mg/dL (0.8-1.3); EST CRCL DRUG DOSING (CG) 150.89 mL/min; POTASSIUM,K 4.4 mmol/L (3.5-5.1); PROTEIN TOTAL,TP 7.1 g/dL (6.4-8.2)
[2024-08-11 06:27] LABS: MUCUS,URINE LIGHT (NONE-MOD)
[2024-08-11] MEDS: Iopamidol 755 MG/ML 500 ML Multipack Bottle IVPUSH ONE (07:02)
[2024-08-11 08:59] VITALS: BP 138/71; PULSE 67
[2024-08-11 10:32] LABS: C. TRACHOMATIS BY PCR NOT DETECTED; N. GONORRHOEAE BY PCR NOT DETECTED
== END 2024-08-11 08:58 | disposition home or self-care (01) ==
LOC: MW.ED 05:31
DX: N39.0 Urinary tract infection, site not specified (principal); Z88.8 Allergy status to other drugs, medicaments and biological substances; Z75.8 Other problems related to medical facilities and other health care
CPT/HCPCS: 36415; 74177; 80053; 81001; 82550; 85025; 87086; 87491; 87591; 99284; Q9967; 87088; 87186

== ENCOUNTER 2024-09-07 10:54 | Day surgery (SDC) | payer BC ==
[~2024-09-07 10:54] MED LIST: Sodium Chloride 0.9% 10 ML Syringe FLUSH PRN; Sodium Chloride 0.9% 2.5 ML Syringe FLUSH PRN; Sodium Chloride 0.9% 20 ML SDV IV PRN
[2024-09-07] MEDS: Lactated Ringers 1,000 ML IV SCH (11:23)
[2024-09-07] MEDS ORDERED: propofoL 50 ML ONE (11:51)
[2024-09-07] MEDS ORDERED: Ketamine HCL/NACL, ISO-OSM 50 MG/5 ML Syringe ONE (11:52)
[2024-09-07] MEDS ORDERED: Propofol 200 MG/20 ML SDV ONE (12:11)
[2024-09-07 12:57] VITALS: BP 125/80; PULSE 69
== END 2024-09-07 13:10 | disposition home or self-care (01) ==
LOC: MW.SDS 10:54
PROVIDERS: ATTEND Surgery
DX: K29.50 Unspecified chronic gastritis without bleeding (principal); K31.89 Other diseases of stomach and duodenum; K58.9 Irritable bowel syndrome, unspecified; K21.9 Gastro-esophageal reflux disease without esophagitis; E66.9 Obesity, unspecified; Z88.8 Allergy status to other drugs, medicaments and biological substances; Z79.899 Other long term (current) drug therapy; Z68.30 Body mass index [BMI] 30.0-30.9, adult
CPT/HCPCS: 43239; 45380; J2704; J7120; 00813; J3490